=== PATIENT | female | born 1985 | race Caucasian/White ===

== ENCOUNTER 2019-05-06 20:16 | Observation (INO) | payer OTHER ==
[~2019-05-06] VITALS: Ht 175.3 cm; Wt 120.2 kg
[~2019-05-06 20:16] MED LIST: ANTIVERT 25MG25 MG PO; DEPO-PROVER150 MG/M1; FLEXERIL 1010 MG/TAB PO; TYLENOL 500MG500 MG PO; ZOFRAN 4MG T4 MG/TAB PO
[2019-05-06 21:25] LABS: COLLECTION METHOD CLEAN CATCH
[2019-05-06 21:29] LABS: BASO % 0.2 % (0.0-2.0); EOS # 0.1 (0.0-0.7); EOS % 0.7 % (0-4.0); GRAN # 6.7 (1.4-6.5); GRAN % 66.8 % (42.2-75.2); HEMATOCRIT 39.9 % (37.0-47.0); HEMOGLOBIN 13.6 g/dl (12.5-16.0); LYMPH # 2.7 (1.2-3.4); LYMPH % 26.7 % (20.0-51.0); MEAN CELL VOLUME 89 fl (80.0-100.0); MEAN CORPUSCULAR HEMOGLOBIN 30 pg (27.0-31.0); MEAN CORPUSCULAR HGB CONC 34 g/dl (33.0-37.0); MEAN PLATELET VOLUME 10.4 fl (7.4-10.4); MONO # 0.5 (0.1-0.6); MONO % 5.3 % (1.7-9.3); PLATELET COUNT 268 K/mm3 (130-400); REDCELL DISTRIBUTION WIDTH-CV 11.9 % (11.5-14.5)
[2019-05-06 21:33] LABS: MUCOUS Present /lpf; PH 6 (5-8); URINE APPEARANCE Hazy; URINE BACTERIA None Seen /hpf; URINE BILIRUBIN Negative (NEGATIVE); URINE BLOOD 2+ (NEGATIVE); URINE COLOR Yellow; URINE GLUCOSE Negative (NEGATIVE); URINE KETONE Negative (NEGATIVE); URINE LEUKOCYTE ESTERASE Negative (NEGATIVE); URINE NITRATE Negative (NEGATIVE); URINE PROTEIN(semi-quant) Negative (NEGATIVE); URINE UROBILINOGEN Negative (NEGATIVE)
[2019-05-06 21:42] LABS: ALBUMIN 4.7 gm/dL (3.5-5.0); CALCIUM 9.3 mg/dL (8.4-10.2); CREATININE, serum 0.77 (0.52-1.25); POTASSIUM 3.6 mmol/L (3.4-5.0); TOTAL PROTEIN 8.4 gm/dL (6.4-8.2)
[2019-05-07] VITALS (7 sets, daily range): BP systolic 90–123; BP diastolic 49–76; PULSE 71–85; TEMP 97.7–98.9
[2019-05-07 06:21] LABS: BASO % 0.3 % (0.0-2.0); EOS # 0.2 (0.0-0.7); EOS % 1.9 % (0-4.0); GRAN # 4.9 (1.4-6.5); GRAN % 64.2 % (42.2-75.2); HEMOGLOBIN 12.2 g/dl (12.5-16.0); LYMPH % 26.5 % (20.0-51.0); MEAN CELL VOLUME 89 fl (80.0-100.0); MEAN CORPUSCULAR HEMOGLOBIN 31 pg (27.0-31.0); MEAN CORPUSCULAR HGB CONC 35 g/dl (33.0-37.0); MEAN PLATELET VOLUME 10.5 fl (7.4-10.4); MONO # 0.5 (0.1-0.6); PLATELET COUNT 235 K/mm3 (130-400); RED BLOOD COUNT 3.96 M/mm3 (4.10-5.30); REDCELL DISTRIBUTION WIDTH-CV 11.9 % (11.5-14.5)
[2019-05-07 06:34] LABS: HEMATOCRIT 35.3 % (37.0-47.0)
[2019-05-07 06:36] LABS: ALBUMIN 3.9 gm/dL (3.5-5.0); BILIRUBIN,TOTAL 0.9 mg/dL (0.0-1.0); CALCIUM 8.6 mg/dL (8.4-10.2); CREATININE, serum 0.72 (0.52-1.25); POTASSIUM 3.7 mmol/L (3.4-5.0); TOTAL PROTEIN 7.1 gm/dL (6.4-8.2)
--- NOTE | 2019-05-07 08:00 | NUR ---
Patient in bed resting. Alert and oriented x 3. Shift assessment complete. Family at bedside. Patient states mild pain only when moving, otherwise denies pain when in bed. Fluids infusing per orders to LAC IV. Will continue to monitor. Denies further needs at this time.
--- NOTE | 2019-05-07 09:58 | NUR ---
SW met with the patient and the patient's [id number], Monica, to discuss discharge plan. The patient is danish speaking. The patient's [id number] translated. The patient lives in [place] with her boyfriend, Abhinav Gutierrez (ph#[phone]). She reports independence with ADLs and does not have any DME. The patient receives primary care at [facility] and she states that she has not had to utilize a pharmacy, due to not needing meds. She states that she will not have any difficulties affording any meds that may be prescribed. The patient is self pay. SW consulted Financial Counseling, Ailin. The patient does not have advanced directives completed and states that her next of kin or emergency contact would be her boyfriend, Abhinav. The plans to return home with her boyfriend upon discharge. No additional needs at this time.
--- NOTE | 2019-05-07 18:21 | NUR ---
Patient has done well throughout the day, seen by Dr. Spear this afternoon. Denies pain at this time. Denies further needs at this time. Will report off to associate professor of kinesiology.
--- NOTE | 2019-05-07 20:30 | NUR ---
Initial shift assessment done- japanese speaking- has family in room who speak libyan,, states abd pain / but does not want any pain meds- on clear liquids now- did have some for supper- denies nausea at this time- Up to bathroom, voiding well. D5NS at 110cc/hr-
[2019-05-08 03:39] VITALS: BP 98/56; PULSE 100
--- NOTE | 2019-05-08 06:08 | NUR ---
Quiet night- no requests- slept fair VSS,
[2019-05-08 07:05] LABS: BASO % 0.2 % (0.0-2.0); EOS # 0.3 (0.0-0.7); EOS % 3.3 % (0-4.0); GRAN # 5.8 (1.4-6.5); GRAN % 62.6 % (42.2-75.2); HEMOGLOBIN 12.6 g/dl (12.5-16.0); LYMPH # 2.4 (1.2-3.4); LYMPH % 25.5 % (20.0-51.0); MEAN CELL VOLUME 90 fl (80.0-100.0); MEAN CORPUSCULAR HEMOGLOBIN 31 pg (27.0-31.0); MEAN CORPUSCULAR HGB CONC 34 g/dl (33.0-37.0); MEAN PLATELET VOLUME 10.1 fl (7.4-10.4); MONO # 0.8 (0.1-0.6); MONO % 8.3 % (1.7-9.3); PLATELET COUNT 241 K/mm3 (130-400); RED BLOOD COUNT 4.06 M/mm3 (4.10-5.30); REDCELL DISTRIBUTION WIDTH-CV 11.9 % (11.5-14.5)
[2019-05-08 07:06] LABS: HEMATOCRIT 36.6 % (37.0-47.0)
[2019-05-08 07:11] LABS: BILIRUBIN,TOTAL 0.6 mg/dL (0.0-1.0); CALCIUM 8.8 mg/dL (8.4-10.2); CREATININE, serum 0.7 (0.52-1.25); POTASSIUM 4.1 mmol/L (3.4-5.0); TOTAL PROTEIN 7.4 gm/dL (6.4-8.2)
[2019-05-08 08:33] VITALS: BP 114/72; PULSE 80; TEMP 98.4
--- NOTE | 2019-05-08 09:18 | NUR ---
Pt awake and alert this AM, family in room, shioft assessments complete, left Pt call light in reach, bed in lowest position.
[2019-05-08 12:45] VITALS: BP 104/51; PULSE 79; TEMP 98.2
[2019-05-08 17:12] VITALS: BP 113/66; PULSE 88; TEMP 99.1
--- NOTE | 2019-05-08 18:25 | NUR ---
Pt resting in the room today, family in room, no C/O pain during the day, VS have remained stable.
[2019-05-08 19:37] VITALS: BP 112/68; PULSE 94; TEMP 99.2
--- NOTE | 2019-05-08 20:48 | NUR ---
Report rcvd from WILFRED Mcdaniel. Pt [place] language is [place]. There is a slight language barrier. Pt answers questions with yes or no. Assessment compeleted. No c/o pain or discomfort. No concerns at this time. Call light and personal phone within reach.
[2019-05-09] VITALS (14 sets, daily range): BP systolic 102–120; BP diastolic 50–73; PULSE 79–108; TEMP 97.4–98.9
--- NOTE | 2019-05-09 07:17 | NUR ---
Report given to WILFRED Mcdaniel. Pt had an uneventful night. No c/o pain or discomfort. Pre-op medication and LR started. Consent will need to be signed via deposit clerk. No further concerns at this time.
--- NOTE | 2019-05-09 08:03 | NUR ---
Attempted to have Pt sign consent for surgery, asked Pt through scudding inspector application "do you understand what the doctor told you about your surgery" Pt answered that she did not understand, contacted the OR charge and let her know that informed consent could not be obtained, attempted to contact physician without success.
--- NOTE | 2019-05-09 08:23 | NUR ---
Pt awake and alert this morning, family in room with Pt, no C/O pain at this time, shift assessments complete, left Pt call light in reach, bed in lowest position.
--- NOTE | 2019-05-09 18:41 | NUR ---
Pt resting since returning from surgery this morning, has C/O pain in her abdominal area, medications given for relief, post op checks complete, VS have remained stable.
--- NOTE | 2019-05-09 19:18 | NUR ---
Gave report to WILFRED Lisa.
--- NOTE | 2019-05-09 20:30 | NUR ---
Pt sitting in bed after ambulating the the bathroom. Pt denies pain at this time. Abdomen soft. BS+. Laps x5- edges well approximated- open to air. Pt taking PO fluids appropriately. INT to L AC. Lungs clear. No acute distress noted. No needs noted.
--- NOTE | 2019-05-10 03:05 | NUR ---
Pt c/o gas pain. PRN pain medication given. Pt encouraged to ambulate to help relieve gas.
[2019-05-10 03:51] VITALS: BP 99/52; PULSE 80; TEMP 98.8
--- NOTE | 2019-05-10 06:00 | NUR ---
Pt sleeping this AM after having relief from pain medication. No distress noted.
--- NOTE | 2019-05-10 07:29 | NUR ---
REPORT RECEIVED FROM WILFRED ROSARIO. PT SLEEPING SOUNDLY IN BED. PT'S FAMILY MEMBER SLEEPING IN HER RM. CALL LIGHT IN REACH.
[2019-05-10 07:48] VITALS: BP 115/62; PULSE 75; TEMP 98.7
--- NOTE | 2019-05-10 09:18 | NUR ---
Pt ambulated in hallway and back to bed. Pt alert and oriented. Pt c/o abdominal pain, 01/10. Call light in reach.
[2019-05-10] MEDS ORDERED: NORCO 325 MG-51 TAB PO (09:50)
--- NOTE | 2019-05-10 10:15 | NUR ---
Pt and friend reviewed discharge instrcution and able to verbalize understanding of dc instruction. Pt signed dc paper and getting dressed at this time. Call light in reach.
== END 2019-05-10 10:37 | disposition home or self-care (01) ==
LOC: COL.ER 20:16 → MEDICAL 22:03
PROVIDERS: Emergency Medicine; ADMIT Surgery
DX: K80.12 Calculus of gallbladder with acute and chronic cholecystitis without obstruction (principal); K85.10 Biliary acute pancreatitis without necrosis or infection
CPT/HCPCS: G0008; G0378; J0330; J0690; J1100; J1170; J1885; J1956; J2270; J2405; J2550; J2704; J3010; J7030; J7042; J7120; Q9967

== ENCOUNTER 2021-08-09 23:02 | Emergency (ER) | payer SELFPAY ==
[~2021-08-09] VITALS: Ht 175.3 cm; Wt 112.0 kg
[~2021-08-09 23:02] MED LIST changes: +NORCO 325 MG-51 TAB PO
[2021-08-09 23:31] LABS: COLLECTION METHOD CLEAN CATCH
[2021-08-09 23:37] LABS: PH 6 (5-8); URINE APPEARANCE Hazy (CLEAR/HAZY); URINE BACTERIA Rare /hpf (NONE SEEN); URINE BILIRUBIN Negative (NEGATIVE); URINE BLOOD 2+ (NEGATIVE); URINE COLOR Yellow (YELLOW); URINE GLUCOSE Negative (NEGATIVE); URINE KETONE Negative (NEGATIVE); URINE LEUKOCYTE ESTERASE 3+ (NEGATIVE); URINE NITRATE Negative (NEGATIVE); URINE PROTEIN(semi-quant) Negative (NEGATIVE); URINE UROBILINOGEN Negative (NEGATIVE)
[2021-08-09 23:41] LABS: STREP SCREEN NEGATIVE
[2021-08-10] MEDS ORDERED: CEFTIN 250250 MG/TAB PO (00:43)
[2021-08-10 01:02] VITALS: BP 119/68; PULSE 88; TEMP 98.4
== END 2021-08-10 01:02 | disposition home or self-care (01) ==
LOC: COL.ER 23:02
PROVIDERS: Nurse Practitioner
DX: N39.0 Urinary tract infection, site not specified (principal); J06.9 Acute upper respiratory infection, unspecified; Z20.822 Contact with and (suspected) exposure to COVID-19; Z32.02 Encounter for pregnancy test, result negative

== ENCOUNTER 2022-08-23 16:38 | Emergency (ER) | payer SELFPAY ==
[~2022-08-23] VITALS: Ht 175.3 cm; Wt 122.3 kg
[~2022-08-23 16:38] MED LIST changes: +CEFTIN 250250 MG/TAB PO; +IBU600 MG PO; +PRENATAL MVI; +PROCARDIA XL 3030 MG PO
[2022-08-23 16:39] VITALS: TEMP 98.2
[2022-08-23 18:33] LABS: BASO # 0.1 K/mm3 (0.0-0.2); BASO % 0.4 % (0.0-2.0); EOS # 0.1 K/mm3 (0.0-0.7); EOS % 0.9 % (0.0-4.0); GRAN # 12.3 K/mm3 (1.4-6.5); GRAN % 88.9 % (42.2-75.2); HEMATOCRIT 37.1 % (37.0-47.0); HEMOGLOBIN 12.3 g/dl (12.5-16.0); LYMPH # 1.1 K/mm3 (1.2-3.4); LYMPH % 8.3 % (20.0-51.0); MEAN CELL VOLUME 81 fl (80.0-100.0); MEAN CORPUSCULAR HEMOGLOBIN 27 pg (27-31); MEAN CORPUSCULAR HGB CONC 33 g/dl (33.0-37.0); MEAN PLATELET VOLUME 10.8 fl (7.4-10.4); MONO # 0.2 K/mm3 (0.1-0.6); MONO % 1.1 % (1.7-9.3); PLATELET COUNT 310 K/mm3 (130-400); RED BLOOD COUNT 4.56 M/mm3 (4.10-5.30); REDCELL DISTRIBUTION WIDTH-CV 15.6 % (11.5-14.5)
[2022-08-23 18:49] LABS: BILIRUBIN,TOTAL 0.2 mg/dL (0.2-1.2); CREATININE, serum 0.79 mg/dL (0.57-1.11); TOTAL PROTEIN 6.3 gm/dL (6.2-8.1)
[2022-08-23 18:53] LABS: POTASSIUM 2.9 mmol/L (3.5-4.5)
[2022-08-23] MEDS ORDERED: PREDNISONE20 MG PO (21:11)
[2022-08-23 21:31] VITALS: BP 123/70; PULSE 90
== END 2022-08-23 21:40 | disposition home or self-care (01) ==
LOC: COL.ER 16:38
PROVIDERS: Emergency Medicine
DX: T88.6XXA Anaphylactic reaction due to adverse effect of correct drug or medicament properly administered, initial encounter (principal); T38.5X5A Adverse effect of other estrogens and progestogens, initial encounter; E87.6 Hypokalemia; R73.9 Hyperglycemia, unspecified; R74.8 Abnormal levels of other serum enzymes; D72.829 Elevated white blood cell count, unspecified
CPT/HCPCS: C9113; J1200; J2405; J2930; J3010; J7030; J7120; J7512